=== PATIENT | female | born 1980 | race African-American/Black ===

== ENCOUNTER → 2017-04-07 | Outpatient (CLI) | payer MEDICARE, OTHER ==
--- NOTE | 2017-04-07 16:51 | US ---
EXAMINATION TYPE: US pelvis complete transvag DATE OF EXAM: 04/07/2017 COMPARISON: 09/14/2015 CLINICAL HISTORY: N83.209 Ovarian cyst. F/U previous ovarian masses TECHNIQUE: Transvaginal (TV) and Transabdominal (TA) Date of LMP: 03/23/2017 EXAM MEASUREMENTS: Uterus: 9.9 x 4.3 x 4.7 cm Endometrial Stripe: 0.7 cm Right Ovary: 8.1 x 6.5 x 6.3 cm Left Ovary: 3.5 x 2.7 x 1.6 cm Large pt body habitus 1. Uterus: Anteverted Heterogeneous 2. Endometrium: wnl 3. Right Ovary: Heterogeneous, echogenic lesion within right adnexa= 7.1 x 6.6 x 8.1 cm, Normal ovar james tissue not identified, slightly larger when compared to previous 4. Left Ovary: Small echogenic lesion as seen on previous= 1.7 x 1.0 x 1.1 cm, slightly larger from previous exam 5. Bilateral Adnexa: wnl 6. Posterior cul-de-sac: wnl IMPRESSION: Persistently enlarged right ovary that is slightly larger than old exam of 09/14/2015. No rmal endometrium. No free fluid. Ovary has increased from 7.2 cm to 8.1 cm in length.
== END | disposition home or self-care (01) ==
LOC: RADUSWWP 16:16
PROVIDERS: ATTEND Family Medicine
DX: N83.8 Other noninflammatory disorders of ovary, fallopian tube and broad ligament (principal)
CPT/HCPCS: 76830; 76856

== ENCOUNTER 2017-09-04 08:35 | Observation (INO) | payer MEDICARE, OTHER ==
[2017-09-04] MEDS ORDERED: ASPIRIN 81 MG PO STA (09:04)
[2017-09-04] MEDS ORDERED: NITROGLYCERIN OINT 1 INCH/GM PACKET TOPICAL STA (09:04)
--- NOTE | 2017-09-04 09:13 | ED ---
General Adult HPI - General Chief complaint: Chest Pain Stated complaint: Diff Breathing Time Seen by Provider: 09/04/17 08:40 Source: patient, RN notes reviewed Mode of arrival: ambulatory Limitations: no limitations - History of Present Illness Initial comments: This is a 37-year-old female presents emergency department stating that she had chest pain across her chest at 6:00 this morning lasted for approximately 2 hours. Patient states she also found it difficult to take a deep breath per patient states that she arrived to the ER she has no symptoms whatsoever. Patient states she just would like to be checked out. Patient denies any palpitations. Patient denies any recent fever chills or cough. Patient denies any headache patient denies numbness weakness. Patient denies any lightheadedness dizziness or near syncopal episode. Patient denies abdominal pain patient denies nausea vomiting or diarrhea. At this time patient has no complaints - Related Data Home Medications Medication Instructions Recorded Confirmed No Known Home Medications [No 09/04/17 09/04/17 Known Home Medications] Allergies Allergy/AdvReac Type Severity Reaction Status Date / Time No Known Allergies Allergy Verified 09/04/17 08:48 Review of Systems ROS Statement: Those systems with pertinent positive or pertinent negative responses have been documented in the HPI. ROS Other: All systems not noted in ROS Statement are negative. Past Medical History Past Medical History: No Reported History History of Any Multi-Drug Resistant Organisms: None Reported Past Surgical History: No Surgical Hx Reported Past Psychological History: Anxiety, Depression Smoking Status: Former smoker Past Alcohol Use History: None Reported Past Drug Use History: None Reported - Past Family History Mother Family Medical History: Hypertension General Exam - General Exam Comments Initial Comments: GENERAL: Patient is well-developed and well-nourished. Patient is nontoxic and well- hydrated and is in no acute distress. ENT: Neck is soft and supple. No significant lymphadenopathy is noted. Oropharynx is clear. Moist mucous membranes. Neck has full range of motion without eliciting any pain. EYES: The sclera were anicteric and conjunctiva were pink and moist. Extraocular movements were intact and pupils were equal round and reactive to light. Eyelids were unremarkable. PULMONARY: Unlabored respirations. Good breath sounds bilaterally. No audible rales rhonchi or wheezing was noted. CARDIOVASCULAR: There is a regular rate and rhythm without any murmurs gallops or rubs. ABDOMEN: Soft and nontender with normal bowel sounds. No palpable organomegaly was noted. There is no palpable pulsatile mass. SKIN: Skin is clear with no lesions or rashes and otherwise unremarkable. NEUROLOGIC: Patient is alert and oriented x3. Cranial nerves II through XII are grossly intact. Motor and sensory are also intact. Normal speech, volume and content. Symmetrical smile. MUSCULOSKELETAL: Normal extremities with adequate strength and full range of motion. LYMPHATICS: No significant lymphadenopathy is noted PSYCHIATRIC: Normal psychiatric evaluation. Normal interpersonal interactions appears functionally intact in deals appropriately with others. No signs of depression. No signs of anxiety. No delusions. No hallucinations. Limitations: no limitations Course Vital Signs 09/04/17 09/04/17 08:37 10:01 Temperature 97.3 F L Pulse Rate 89 84 Respiratory 18 18 Rate Blood Pressure 139/67 107/53 O2 Sat by Pulse 99 100 Oximetry Medical Decision Making - Medical Decision Making Patient's EKG shows normal sinus rhythm at 93 bpm NE interval is 204 QRS is 74 QT interval 362 QTC is 450 per patient's EKG shows no ST segment elevation or depression or T wave abnormalities are noted. Chest x-ray shows no acute abnormality. Patient did not feel comfortable going home and The patient for observation - Lab Data Result diagrams: 09/04/17 08:57 09/04/17 08:57 Lab Results 09/04/17 09/04/17 09/04/17 Range/Units 08:57 08:57 08:57 WBC 4.2 (3.8-10.6) k/uL RBC 4.59 (3.80-5.40) m/uL Hgb 12.2 (11.4-16.0) gm/dL Hct 39.4 (34.0-46.0) % MCV 85.9 (80.0-100.0) fL MCH 26.6 (25.0-35.0) pg MCHC 30.9 L (31.0-37.0) g/dL RDW 13.1 (11.5-15.5) % Plt Count 307 (150-450) k/uL Neutrophils % 38 % Lymphocytes % 49 % Monocytes % 7 % Eosinophils % 2 % Basophils % 1 % Neutrophils # 1.6 (1.3-7.7) k/uL Lymphocytes # 2.0 (1.0-4.8) k/uL Monocytes # 0.3 (0-1.0) k/uL Eosinophils # 0.1 (0-0.7) k/uL Basophils # 0.0 (0-0.2) k/uL Hypochromasia Moderate PT (9.0-12.0) sec INR (<1.2) APTT (22.0-30.0) sec Sodium 141 (137-145) mmol/L Potassium 4.2 (3.5-5.1) mmol/L Chloride 107 (98-107) mmol/L Carbon Dioxide 25 (22-30) mmol/L Anion Gap 9 mmol/L BUN 18 H (7-17) mg/dL Creatinine 0.96 (0.52-1.04) mg/dL Est GFR (MDRD) Af Amer >60 (>60 ml/min/1.73 sqM) Est GFR (MDRD) Non-Af >60 (>60 ml/min/1.73 sqM) Glucose 96 (74-99) mg/dL Calcium 9.3 (8.4-10.2) mg/dL Magnesium 1.8 (1.6-2.3) mg/dL Total Bilirubin 0.3 (0.2-1.3) mg/dL AST 21 (14-36) U/L ALT 37 (9-52) U/L Alkaline Phosphatase 75 (38-126) U/L Total Creatine Kinase 89 (30-135) U/L CK-MB (CK-2) <0.2 (0.0-2.4) ng/mL CK-MB (CK-2) Rel Index Troponin I <0.012 (0.000-0.034) ng/mL Total Protein 7.4 (6.3-8.2) g/dL Albumin 3.7 (3.5-5.0) g/dL 09/04/17 Range/Units 08:57 WBC (3.8-10.6) k/uL RBC (3.80-5.40) m/uL Hgb (11.4-16.0) gm/dL Hct (34.0-46.0) % MCV (80.0-100.0) fL MCH (25.0-35.0) pg MCHC (31.0-37.0) g/dL RDW (11.5-15.5) % Plt Count (150-450) k/uL Neutrophils % % Lymphocytes % % Monocytes % % Eosinophils % % Basophils % % Neutrophils # (1.3-7.7) k/uL Lymphocytes # (1.0-4.8) k/uL Monocytes # (0-1.0) k/uL Eosinophils # (0-0.7) k/uL Basophils # (0-0.2) k/uL Hypochromasia PT 10.2 (9.0-12.0) sec INR 1.0 (<1.2) APTT 24.3 (22.0-30.0) sec Sodium (137-145) mmol/L Potassium (3.5-5.1) mmol/L Chloride (98-107) mmol/L Carbon Dioxide (22-30) mmol/L Anion Gap mmol/L BUN (7-17) mg/dL Creatinine (0.52-1.04) mg/dL Est GFR (MDRD) Af Amer (>60 ml/min/1.73 sqM) Est GFR (MDRD) Non-Af (>60 ml/min/1.73 sqM) Glucose (74-99) mg/dL Calcium (8.4-10.2) mg/dL Magnesium (1.6-2.3) mg/dL Total Bilirubin (0.2-1.3) mg/dL AST (14-36) U/L ALT (9-52) U/L Alkaline Phosphatase (38-126) U/L Total Creatine Kinase (30-135) U/L CK-MB (CK-2) (0.0-2.4) ng/mL CK-MB (CK-2) Rel Index Troponin I (0.000-0.034) ng/mL Total Protein (6.3-8.2) g/dL Albumin (3.5-5.0) g/dL Disposition Clinical Impression: Chest pain Disposition: ADMITTED IP TO THIS HOSP Referrals: Cristian Vines MD [Primary Care Provider] - 1-2 days Time of Disposition: 10:39
[2017-09-04 09:27] LABS: Partial Thromboplastin Time 24.3 sec (22.0-30.0); Prothrombin Time 10.2 sec (9.0-12.0)
--- NOTE | 2017-09-04 09:27 | XR ---
EXAMINATION TYPE: XR chest 2V DATE OF EXAM ORDERED: 09/04/2017 HISTORY: Chest Pain. REFERENCE: None. FINDINGS: The lungs are clear. Pleural spaces are clear. Heart size is normal. IMPRESSION: NORMAL CHEST.
[2017-09-04 09:31] LABS: Basophils % (A) 1 %; CH 26.5; CHCM 30.9; Eosinophils # (A) 0.1 k/uL (0-0.7); Eosinophils % (A) 2 %; HCT 39.4 % (34.0-46.0); HDW 2.95; HGB 12.2 gm/dL (11.4-16.0); Hypochromasia Moderate; Luc # (Auto) 0.16; Luc % (Auto) 4; Lymphocytes % (A) 49 %; MCH 26.6 pg (25.0-35.0); MCHC 30.9 g/dL (31.0-37.0); MCV 85.9 fL (80.0-100.0); Mean Platelet Volume 7.1; Monocytes # (A) 0.3 k/uL (0-1.0); Monocytes % (A) 7 %; Neutrophils # (A) 1.6 k/uL (1.3-7.7); Neutrophils % (A) 38 %; RBC 4.59 m/uL (3.80-5.40); RDW 13.1 % (11.5-15.5); WBC 4.2 k/uL (3.8-10.6); WBC (Perox) 4.32
[2017-09-04 09:32] LABS: ALT 37 U/L (9-52); AST 21 U/L (14-36); Alkaline Phosphatase 75 U/L (38-126); Anion Gap 9 mmol/L; Blood Urea Nitrogen 18 mg/dL (7-17); Calcium 9.3 mg/dL (8.4-10.2); Carbon Dioxide 25 mmol/L (22-30); Chloride 107 mmol/L (98-107); Glucose 96 mg/dL (74-99); Magnesium 1.8 mg/dL (1.6-2.3); Non-African American GFR(MDRD) >60 (>60 ml/min/1.73 sqM); Potassium 4.2 mmol/L (3.5-5.1); Sodium 141 mmol/L (137-145); Total Bilirubin 0.3 mg/dL (0.2-1.3); Total Protein 7.4 g/dL (6.3-8.2)
[2017-09-04 09:39] LABS: Creatine Kinase 89 U/L (30-135)
[2017-09-04 09:51] LABS: Creatine Kinase MB <0.2 ng/mL (0.0-2.4); Troponin I <0.012 ng/mL (0.000-0.034)
[2017-09-04] MEDS ORDERED: NITROGLYCERIN SL TABS 0.4 MG TAB SUBLINGUAL PRN (10:39)
[2017-09-04 11:52] VITALS: BMI 44.3
[2017-09-04] MEDS: NITROGLYCERIN OINT 1 INCH/GM PACKET TOPICAL SCH ×2 (12:57→17:26)
--- NOTE | 2017-09-04 13:43 | P.CRDCN ---
History of Present Illness Consult date: 09/04/17 History of present illness: This is a 37-year-old -[place] female with past medical history significant for anxiety and depression. She denies any history of CAD or FL in the past and has never seen a audit associate for any reason. We have asked to see her in consultation for complaints of chest pain. She states this morning while she was laying in bed she got a tight feeling across her chest into his upper chest midsternal region and in persisted for approximately 2 hours. She tried repositioning herself in bed and nothing made the pain better. The pain ultimately went away on its own with no specific alleviating factors that she can recollect. She said she was mildly short of breath associated with this pain and it was hard to get into a full deep breath. She denies associated nausea, dizziness or palpitations. She denies radiation of the pain to her arms , neck, jaw or back. She states she has never experienced this feeling like this in the past. At the time of examination she is chest pain-free. EKG reveals sinus mechanism with no acute ST or T-wave abnormalities. Chest x-ray negative for any acute cardiopulmonary process. Cardiac enzymes negative 1, potassium 4.2, magnesium 1.8, UUN 18, creatinine 0.96, hemoglobin 12.2, platelets 307. Blood pressure 102/68 with a heart rate of 85, upon arrival blood pressure was 139/67. She takes no home medications. Review of Systems CONSTITUTIONAL: Denies fever. Denies chills. EYES: Denies blurred vision. Denies vision changes. Denies eye pain. EARS, NOSE, MOUTH & THROAT: Denies headache. Denies sore throat. Denies ear pain. CARDIOVASCULAR: Complains of one episode of chest pain, resolved. Denies shortness of breath. Denies orthopnea. Denies PND. Denies palpitations. RESPIRATORY: Denies cough. GASTROINTESTINAL: Denies abdominal pain. Denies diarrhea. Denies constipation. Denies nausea. Denies vomitng. MUSCULOSKELETAL: Denies myalgias. INTEGUMENTARY: Denies pruitis. Denies rash. NEUROLOGIC: Denies numbness. Denies tingling. Denies weakness. PSYCHIATRIC: Denies anxiety. Denies depression. ENDOCRINE: Denies fatigue. Denies weight change. Denies polydipsia. Denies polyurina. GENITOURINARY: Denies burning, hematuria or urgency with micturation. HEMATOLOGIC: Denies history of anemia. Denies bleeding. Past Medical History Past Medical History: No Reported History History of Any Multi-Drug Resistant Organisms: None Reported Past Surgical History: No Surgical Hx Reported Past Anesthesia/Blood Transfusion Reactions: No Reported Reaction Past Psychological History: Anxiety, Depression Smoking Status: Former smoker Past Alcohol Use History: None Reported Past Drug Use History: None Reported - Past Family History Sister(s) Family Medical History: Hypertension Mother Family Medical History: Hypertension Medications and Allergies Home Medications Medication Instructions Recorded Confirmed Type No Known Home Medications [No 09/04/17 09/04/17 History Known Home Medications] Allergies Allergy/AdvReac Type Severity Reaction Status Date / Time No Known Allergies Allergy Verified 09/04/17 08:48 Physical Exam Vitals: Vital Signs Temp Pulse Pulse Resp BP BP Pulse Ox 09/04/17 11:30 97.5 F L 85 18 102/68 100 09/04/17 11:00 85 18 108/58 99 09/04/17 10:01 84 18 107/53 100 09/04/17 08:37 97.3 F L 89 18 139/67 99 Intake and Output 09/03/17 09/04/17 09/04/17 22:59 06:59 14:59 Other: Weight 145.1 kg Patient Weight 09/05/17 06:59 Weight 145.1 kg GENERAL: This is a 37-year-old and [place] in no apparent distress at the time of my examination. Morbidly obese. HEENT: Head is atraumatic, normocephalic. Pupils are equal, round. Sclerae anicteric. Conjunctivae are clear. Mucous membranes of the mouth are moist. Neck is supple. There is no jugular venous distention. No carotid bruit is heard. LUNGS: Clear to auscultation no wheezes, rales or rhonchi. No chest wall tenderness is noted on palpation or with deep breathing. HEART: Regular rate and rhythm without murmurs, rubs or gallops. S1 and S2 heard. ABDOMEN: Soft, nontender. Bowel sounds are heard. No organomegaly noted. EXTREMITIES: 2+ peripheral pulses with no evidence of peripheral edema and no calf tenderness noted. NEUROLOGIC: Patient is awake, alert and oriented x3. Results 09/04/17 08:57 09/04/17 08:57 Cardiac Enzymes 09/04/17 09/04/17 Range/Units 08:57 08:57 AST 21 (14-36) U/L CK-MB (CK-2) <0.2 (0.0-2.4) ng/mL Troponin I <0.012 (0.000-0.034) ng/mL Coagulation 09/04/17 Range/Units 08:57 PT 10.2 (9.0-12.0) sec APTT 24.3 (22.0-30.0) sec CBC 09/04/17 Range/Units 08:57 WBC 4.2 (3.8-10.6) k/uL RBC 4.59 (3.80-5.40) m/uL Hgb 12.2 (11.4-16.0) gm/dL Hct 39.4 (34.0-46.0) % Plt Count 307 (150-450) k/uL Comprehensive Metabolic Panel 09/04/17 Range/Units 08:57 Sodium 141 (137-145) mmol/L Potassium 4.2 (3.5-5.1) mmol/L Chloride 107 (98-107) mmol/L Carbon Dioxide 25 (22-30) mmol/L BUN 18 H (7-17) mg/dL Creatinine 0.96 (0.52-1.04) mg/dL Glucose 96 (74-99) mg/dL Calcium 9.3 (8.4-10.2) mg/dL AST 21 (14-36) U/L ALT 37 (9-52) U/L Alkaline Phosphatase 75 (38-126) U/L Total Protein 7.4 (6.3-8.2) g/dL Albumin 3.7 (3.5-5.0) g/dL Current Medications Generic Name Dose Route Start Last Admin Trade Name Freq PRN Reason Stop Dose Admin Aspirin 325 mg 09/05/17 09:00 Aspirin PO DAILY BETO Nitroglycerin 1 inch 09/04/17 13:00 Nitro-Bid Oint TOPICAL Q6HR BETO Nitroglycerin 0.4 mg 09/04/17 10:39 Nitrostat SUBLINGUAL Q5M PRN Chest Pain Intake and Output 09/03/17 09/04/17 09/04/17 22:59 06:59 14:59 Other: Weight 145.1 kg Patient Weight 09/05/17 06:59 Weight 145.1 kg 09/04/17 08:57 09/04/17 08:57 Assessment and Plan Assessment: ASSESSMENT 1. Chest pain, atypical. Cardiac risk factor includes obesity. 2. Morbid obesity PLAN EKG reveals no acute changes of concern. Cardiac enzymes are normal 1. We recommend obtaining 2 more sets of cardiac enzymes to rule out an acute coronary event. If these are normal recommend that the patient follow-up as an outpatient for stress testing. We will obtain a 2-D echocardiogram and Doppler study to assess cardiac structure and function. Last on modifications have been discussed with the patient. Thank you kindly for this consultation. Nurse Practitioner note has been reviewed, I agree with a documented findings and plan of care. Patient was seen and examined.
[2017-09-04] MEDS ORDERED: ACETAMINOPHEN TAB 325 MG TAB PO PRN (14:13)
--- NOTE | 2017-09-04 14:27 | HP ---
HISTORY AND PHYSICAL CHIEF COMPLAINT: Chest pain. HISTORY OF PRESENT ILLNESS: This is another admission for this 37-year-old that did present to the emergency room with shortness of breath and chest pain and was felt to not likely have heart disease, but should be admitted for observation. She has had no fever, no chills, hemoptysis, orthopnea, PND, etc. Past medical history, family history, personal and social histories reveal that she is not allergic to any medication. She uses Tylenol extra-strength occasionally. She does have a past history of depression. She has had no surgery. She does not smoke. . PHYSICAL EXAM: Blood pressure is 114/76, pulse 74, respirations 16. She is afebrile. In general she appeared to be overweight, in no acute distress. Skin color is normal. Skin is warm, dry. Lymph nodes are not enlarged. Head, ears, eyes, nose, mouth, and throat were normal and neck veins not distended but thyroid is not enlarged. Chest is clear. Cardiac exam is normal sinus rhythm. No murmurs or extra sounds. The abdomen is soft, nontender. EXTREMITIES: Normal. Neurologically she is intact. She is admitted to the hospital with diagnoses. 1. Chest pain. 2. Obesity. PLAN: 1. Bed rest. 2. IV fluids. 3. Serial EKGs and enzymes. MMODL / IJN: [id number] /
[2017-09-04 15:55] LABS: Creatine Kinase 77 U/L (30-135)
[2017-09-04 16:07] LABS: Creatine Kinase MB <0.2 ng/mL (0.0-2.4); Troponin I <0.012 ng/mL (0.000-0.034)
[2017-09-04 20:35] LABS: Creatine Kinase 73 U/L (30-135)
[2017-09-04 20:48] LABS: Creatine Kinase MB <0.2 ng/mL (0.0-2.4); Troponin I <0.012 ng/mL (0.000-0.034)
[2017-09-05 01:23] LABS: Cholesterol 184 mg/dL (<200); HDL Cholesterol 46 mg/dL (40-60)
[2017-09-05] MEDS: NITROGLYCERIN OINT 1 INCH/GM PACKET TOPICAL SCH ×3 (04:52→13:25)
[2017-09-05 08:23] VITALS: RESP 16
[2017-09-05] MEDS ORDERED: ASPIRIN 325 MG TAB PO SCH (09:00)
[2017-09-05 12:05] VITALS: BP 108/56; PULSE 72; TEMP 97.5
--- NOTE | 2017-09-05 14:31 | ECHOF ---
Referral Reason:cp MEASUREMENTS -------- HEIGHT: 175.3 cm WEIGHT: 144.7 kg BP: 102/68 RVIDd: 2.2 cm (< 3.3) IVSd: 1.1 cm (0.6 - 1.1) LVIDd: 3.9 cm (3.9 - 5.3) LVPWd: 1.1 cm (0.6 - 1.1) IVSs: 1.5 cm LVIDs: 2.2 cm LVPWs: 1.5 cm Ao Diam: 3.1 cm (2.0 - 3.7) AV Cusp: 2.2 cm (1.5 - 2.6) LA Diam: 3.0 cm (2.7 - 3.8) MV E Jean Pierre: 0.73 m/s MV DecT: 385 ms MV A Jean Pierre: 0.80 m/s MV E/A Ratio: 0.91 RAP: 5.00 mmHg RVSP: 9.49 mmHg FINDINGS -------- Sinus rhythm. This was a technically difficult study with suboptimal views. The left ventricular size is normal. There is borderline concentric left ventricular hypertrophy. Overall left ventricular systolic function is normal with, an EF between 60 - 65 %. The right ventricle is normal in size and function. Normal LA size by volume 22+/-6 ml/m2. The right atrium is normal in size. 1.5mg of Definity was utilized for enhancement of images The aortic valve is trileaflet, and appears structurally normal. No aortic stenosis or regurgitation. The mitral valve is normal. There is trace mitral regurgitation. Trace tricuspid regurgitation present. Right ventricular systolic pressure is normal at < 35 mmHg. There is no evidence of pulmonary hypertension. The pulmonic valve was not well visualized. The aortic root size is normal. Normal inferior vena cava with normal inspiratory collapse consistent with estimated right atrial pre ssure of 5 mmHg. The pericardium is normal. There is no pericardial effusion. CONCLUSIONS -------- 1. Sinus rhythm. 2. This was a technically difficult study with suboptimal views. 3. The left ventricular size is normal. 4. There is borderline concentric left ventricular hypertrophy. 5. Overall left ventricular systolic function is normal with, an EF between 60 - 65 %. 6. Normal LA size by volume 22+/-6 ml/m2. 7. 1.5mg of Definity was utilized for enhancement of images 8. The aortic valve is trileaflet, and appears structurally normal. No aortic stenosis or regurgitati on. 9. There is trace mitral regurgitation. 10. Trace tricuspid regurgitation present. 11. Right ventricular systolic pressure is normal at < 35 mmHg. 12. There is no evidence of pulmonary hypertension. 13. The pulmonic valve was not well visualized. 14. The aortic root size is normal. 15. There is no pericardial effusion. PICTURE FRAMER: Aki Morgan RDCS
--- NOTE | 2017-09-05 16:31 | DS ---
DISCHARGE SUMMARY CHIEF COMPLAINT: Chest pain. HISTORY OF PRESENT ILLNESS AND PHYSICAL EXAMINATION: Details of this lady's history and physical can be found in the initial workup. LABORATORY STUDIES: While she was in a hospital she had laboratory studies, details of which can be found in the laboratory section of her chart. COURSE IN HOSPITAL: After admission she was placed on bedrest and started on intravenous fluids and she had serial EKGs and enzymes that were normal. It was felt she could go home. She will follow up in the office in a few days. FINAL DIAGNOSIS: Atypical chest pain. OPERATIONS: None. CONSULTATIONS: None. She is improved. MMODL / IJN: [id number] /
== END 2017-09-05 14:49 | disposition home or self-care (01) ==
LOC: EC 08:35 → 3OBS 10:40
PROVIDERS: ADMIT Family Medicine; ATTEND Family Medicine
DX: R07.89 Other chest pain (principal); E66.01 Morbid (severe) obesity due to excess calories; Z68.42 Body mass index [BMI] 45.0-49.9, adult; F41.9 Anxiety disorder, unspecified; F32.9 Major depressive disorder, single episode, unspecified; Z87.891 Personal history of nicotine dependence; Z82.49 Family history of ischemic heart disease and other diseases of the circulatory system; R06.02 Shortness of breath
CPT/HCPCS: 99285; 36415; 94760; 93005; 80061; 80053; 82550; 82553; 83735; 84484; 85025; 85610; 85730; 71020; G0378 ×2; C8929; Q9957; 93306

== ENCOUNTER 2017-11-09 15:56 | Emergency (ER) | payer MEDICARE, OTHER ==
[2017-11-09 16:10] VITALS: TEMP 98.4
[2017-11-09] MEDS ORDERED: KETOROLAC 30 MG/ML 1 ML VIAL IVP STA (18:19)
[2017-11-09] MEDS ORDERED: ONDANSETRON 4 MG/2 ML VIAL IVP STA (18:19)
[2017-11-09] MEDS ORDERED: SODIUM CHLORIDE 0.9% 1,000 ML IV ONE (18:19)
--- NOTE | 2017-11-09 18:19 | ED ---
Nausea/Vomiting/Diarrhea HPI - General Chief complaint: Nausea/Vomiting/Diarrhea Stated complaint: Weakness/Vomiting Time Seen by Provider: 11/09/17 17:02 Source: patient, RN notes reviewed, old records reviewed Mode of arrival: ambulatory Limitations: no limitations - History of Present Illness Initial comments: This patient is a 37-year-old female. Presents emergency department today with chief complaint of diarrhea, vomiting, cough, runny nose and vague symptoms. She reports his been going on for 2 weeks. She reports feeling very weak and fatigued.patient also states she's had abnormal vaginal bleeding over the past few days. She is not her last menstrual cycle. She does not know if she could possibly be . - Related Data Previous Rx's Medication Instructions Recorded Nzs-Ersj-Lixrt Acid 1 cap PO DAILY #30 cap 11/09/17 [-U Capsule (formulary)] Allergies Allergy/AdvReac Type Severity Reaction Status Date / Time No Known Allergies Allergy Verified 11/09/17 17:02 Review of Systems ROS Statement: Those systems with pertinent positive or pertinent negative responses have been documented in the HPI. ROS Other: All systems not noted in ROS Statement are negative. Past Medical History Past Medical History: No Reported History History of Any Multi-Drug Resistant Organisms: None Reported Past Surgical History: No Surgical Hx Reported Past Anesthesia/Blood Transfusion Reactions: No Reported Reaction Past Psychological History: Anxiety, Depression Smoking Status: Former smoker Past Alcohol Use History: None Reported Past Drug Use History: None Reported - Past Family History Sister(s) Family Medical History: Hypertension Mother Family Medical History: Hypertension General Exam - General Exam Comments Initial Comments: this is a 37-year-old female. Patient is morbidly obese. Patient is on appear to be in any acute distress. Limitations: no limitations General appearance: alert, in no apparent distress Head exam: Present: atraumatic, normocephalic, normal inspection Eye exam: Present: normal appearance, PERRL, EOMI. Absent: scleral icterus, conjunctival injection, periorbital swelling ENT exam: Present: normal exam, mucous membranes moist Neck exam: Present: normal inspection. Absent: tenderness, meningismus, lymphadenopathy Respiratory exam: Present: normal lung sounds bilaterally. Absent: respiratory distress, wheezes, rales, rhonchi, stridor Cardiovascular Exam: Present: regular rate, normal rhythm, normal heart sounds. Absent: systolic murmur, diastolic murmur, rubs, gallop, clicks GI/Abdominal exam: Present: soft, normal bowel sounds. Absent: distended, tenderness, guarding, rebound, rigid External exam: Present: normal external exam Speculum exam: Present: normal speculum exam. Absent: erythema, vaginal discharge, cervical discharge, vaginal bleeding By manual exam: Present: normal by manual exam Extremities exam: Present: normal inspection, full ROM, normal capillary refill. Absent: tenderness, pedal edema, joint swelling, calf tenderness Back exam: Present: normal inspection Neurological exam: Present: alert, oriented X3, CN II-XII intact Course Vital Signs 11/09/17 11/09/17 16:08 21:20 Temperature 98.4 F Pulse Rate 77 78 Respiratory 20 16 Rate Blood Pressure 136/63 141/63 O2 Sat by Pulse 100 98 Oximetry Medical Decision Making - Medical Decision Making This patient is a [id number]-[id number] with 2 weeks of fatigue, vomiting episodes , diarrhea and his nausea feeling. She reports she feels fatigued. Patient was given IV fluids labwork obtained. Patient was lab work was reviewed and normal. Patient eventually left urine sample. It was evident the patient had a positive urine test. She did not know that she was . She complained of some intermittent vaginal bleeding, serum hCG was obtained, and ABO Rh is obtained. Patient's blood type is B+. Patient see any bleeding at this time during the vaginal exam. She did have an ultrasound. It confirmed a 6 week 2 day . Patient understands that she needs to follow-up with [facility]. Discharged with vitamins. Discussed return parameters. Discussed that I think that her symptoms are related to early .due to the complaint of abnormal vaginal bleeding, I will have the patient and repeat hCG. - Lab Data Result diagrams: 11/09/17 18:44 11/09/17 18:44 Lab Results 11/09/17 11/09/17 11/09/17 Range/Units 18:44 18:44 18:44 WBC 6.0 (3.8-10.6) k/uL RBC 4.33 (3.80-5.40) m/uL Hgb 11.1 L (11.4-16.0) gm/dL Hct 36.1 (34.0-46.0) % MCV 83.4 (80.0-100.0) fL MCH 25.8 (25.0-35.0) pg MCHC 30.9 L (31.0-37.0) g/dL RDW 14.7 (11.5-15.5) % Plt Count 292 (150-450) k/uL Neutrophils % 58 % Lymphocytes % 30 % Monocytes % 7 % Eosinophils % 1 % Basophils % 0 % Neutrophils # 3.5 (1.3-7.7) k/uL Lymphocytes # 1.8 (1.0-4.8) k/uL Monocytes # 0.4 (0-1.0) k/uL Eosinophils # 0.1 (0-0.7) k/uL Basophils # 0.0 (0-0.2) k/uL Hypochromasia Moderate Sodium 140 (137-145) mmol/L Potassium 3.9 (3.5-5.1) mmol/L Chloride 107 (98-107) mmol/L Carbon Dioxide 23 (22-30) mmol/L Anion Gap 10 mmol/L BUN 12 (7-17) mg/dL Creatinine 0.80 (0.52-1.04) mg/dL Est GFR (MDRD) Af Amer >60 (>60 ml/min/1.73 sqM) Est GFR (MDRD) Non-Af >60 (>60 ml/min/1.73 sqM) Glucose 85 (74-99) mg/dL Calcium 9.5 (8.4-10.2) mg/dL Total Bilirubin 0.4 (0.2-1.3) mg/dL AST 16 (14-36) U/L ALT 28 (9-52) U/L Alkaline Phosphatase 68 (38-126) U/L Total Protein 7.3 (6.3-8.2) g/dL Albumin 3.7 (3.5-5.0) g/dL HCG, Quant mIU/mL Urine Color Urine Appearance (Clear) Urine pH (5.0-8.0) Ur Specific [place] (1.001-1.035) Urine Protein (Negative) Urine Glucose (UA) (Negative) Urine Ketones (Negative) Urine Blood (Negative) Urine Nitrite (Negative) Urine Bilirubin (Negative) Urine Urobilinogen (<2.0) mg/dL Ur Leukocyte Esterase (Negative) Urine HCG, Qual Detected (Not Detectd) Blood Type Blood Type Recheck 11/09/17 11/09/17 11/09/17 Range/Units 18:44 18:44 20:28 WBC (3.8-10.6) k/uL RBC (3.80-5.40) m/uL Hgb (11.4-16.0) gm/dL Hct (34.0-46.0) % MCV (80.0-100.0) fL MCH (25.0-35.0) pg MCHC (31.0-37.0) g/dL RDW (11.5-15.5) % Plt Count (150-450) k/uL Neutrophils % % Lymphocytes % % Monocytes % % Eosinophils % % Basophils % % Neutrophils # (1.3-7.7) k/uL Lymphocytes # (1.0-4.8) k/uL Monocytes # (0-1.0) k/uL Eosinophils # (0-0.7) k/uL Basophils # (0-0.2) k/uL Hypochromasia Sodium (137-145) mmol/L Potassium (3.5-5.1) mmol/L Chloride (98-107) mmol/L Carbon Dioxide (22-30) mmol/L Anion Gap mmol/L BUN (7-17) mg/dL Creatinine (0.52-1.04) mg/dL Est GFR (MDRD) Af Amer (>60 ml/min/1.73 sqM) Est GFR (MDRD) Non-Af (>60 ml/min/1.73 sqM) Glucose (74-99) mg/dL Calcium (8.4-10.2) mg/dL Total Bilirubin (0.2-1.3) mg/dL AST (14-36) U/L ALT (9-52) U/L Alkaline Phosphatase (38-126) U/L Total Protein (6.3-8.2) g/dL Albumin (3.5-5.0) g/dL HCG, Quant 01495.7 mIU/mL Urine Color Yellow Urine Appearance Clear (Clear) Urine pH 6.5 (5.0-8.0) Ur Specific [place] 1.023 (1.001-1.035) Urine Protein Trace H (Negative) Urine Glucose (UA) Negative (Negative) Urine Ketones Negative (Negative) Urine Blood Negative (Negative) Urine Nitrite Negative (Negative) Urine Bilirubin Negative (Negative) Urine Urobilinogen <2.0 (<2.0) mg/dL Ur Leukocyte Esterase Negative (Negative) Urine HCG, Qual (Not Detectd) Blood Type B Positive Blood Type Recheck No - Radiology Data Radiology results: report reviewed Ultrasound shows single live intrauterine with sonographic age of 6 weeks and 2 days heart rate of 137. Previously seen subchorionic hemorrhage is no longer visualized. Continue to demonstrate hyperechoic right ovarian mass measuring 7 cm. Pelvic MRI is considered recommended this could represent dermoid or ovarian neoplasm. Disposition Clinical Impression: Threatened miscarriage, 6 weeks gestation of Disposition: HOME SELF-CARE Condition: Good Instructions: Nausea and Vomiting in (ED) Additional Instructions: Patient has a follow-up with primary care provider. Return to emergency department if any alarming signs or symptoms occur. Prescriptions: Sig-Mfow-Uxdsp Acid [-U Capsule (formulary)] 1 cap PO DAILY # 30 cap Referrals: Cristian Vines MD [Primary Care Provider] - 1-2 days Giancarlo Kelly DO [Doctor of Osteopathic Medicine] - 1-2 days Time of Disposition: 20:40
[2017-11-09 18:54] LABS: Basophils % (A) 0 %; Eosinophils # (A) 0.1 k/uL (0-0.7); Eosinophils % (A) 1 %; HCT 36.1 % (34.0-46.0); HGB 11.1 gm/dL (11.4-16.0); Hypochromasia Moderate; Lymphocytes # (A) 1.8 k/uL (1.0-4.8); Lymphocytes % (A) 30 %; MCH 25.8 pg (25.0-35.0); MCHC 30.9 g/dL (31.0-37.0); MCV 83.4 fL (80.0-100.0); Mean Platelet Volume 7.7; Monocytes # (A) 0.4 k/uL (0-1.0); Monocytes % (A) 7 %; Neutrophils # (A) 3.5 k/uL (1.3-7.7); Neutrophils % (A) 58 %; Platelet Count 292 k/uL (150-450); RBC 4.33 m/uL (3.80-5.40); RDW 14.7 % (11.5-15.5)
[2017-11-09 18:55] LABS: Appearance,Urine Clear (Clear); Bilirubin,Urine Negative (Negative); Blood,Urine Negative (Negative); Color,Urine Yellow; Glucose,Urine (UA) Negative (Negative); Ketones,Urine Negative (Negative); Leukocyte Esterase,Urine Negative (Negative); Nitrite,Urine Negative (Negative); PH, Urine 6.5 (5.0-8.0); Protein,Urine Trace (Negative); Specific Gravity,Urine 1.023 (1.001-1.035); Urobilinogen,Urine <2.0 mg/dL (<2.0)
[2017-11-09 19:19] LABS: ALT 28 U/L (9-52); AST 16 U/L (14-36); Albumin 3.7 g/dL (3.5-5.0); Alkaline Phosphatase 68 U/L (38-126); Anion Gap 10 mmol/L; Blood Urea Nitrogen 12 mg/dL (7-17); Calcium 9.5 mg/dL (8.4-10.2); Carbon Dioxide 23 mmol/L (22-30); Chloride 107 mmol/L (98-107); Glucose 85 mg/dL (74-99); Potassium 3.9 mmol/L (3.5-5.1); Sodium 140 mmol/L (137-145); Total Bilirubin 0.4 mg/dL (0.2-1.3); Total Protein 7.3 g/dL (6.3-8.2)
--- NOTE | 2017-11-09 20:11 | US ---
EXAMINATION TYPE: US OB <=14 wks transvag DATE OF EXAM: 11/09/2017 COMPARISON: NONE CLINICAL HISTORY: Pain. Weakness and vomiting EXAM PERFORMED: Transvaginal (TV) and Transabdominal (TA) EXAM MEASUREMENTS: GESTATIONAL AGE / DATING Physician Established: Not yet established Dates by LMP: (2 weeks/5 days) EDC: 07/28/2018 Dates by First Scan: No previous this is first scan Dates by Current Scan for: (6 weeks/1 days) EDC: 07/04/2018 MATERNAL ANATOMY Uterus: 11.8 x 5.3 x 7.3 cm Right Ovary: 6.1 x 7.5 x 8.2 cm Left Ovary: 2.8 x 1.7 x 1.8 cm Post CDS / Adnexa: appears wnl Presence of free fluid: small amount Presence of corpus luteal cyst: no Presence of subchorionic bleed: no GESTATION / SURVEY CRL: 0.39 (6 weeks/1 days) MSD: 1.70 (6 weeks/0 days). Yolk Sac (normal less than 6mm): 3mm Heart Rate: 167 bpm Rhythm: Normal IUP: Viable IUP Beta HcG (if available): Not available at this time Viable IUP seen 6wks 2day HR 167 BPM TAMIE 07/04/2018. Right ovary is a mixed solid mass as seen in pre vious exams. This measures 6.2 x 5.7 x 7.1 cm. IMPRESSION: 1. Single live intrauterine with a sonographic age of 6 weeks and 2 days and heart rate of 167 bpm. Previously seen subchorionic hemorrhage is no longer visualized. 2. Continued demonstration of a hyperechoic right ovarian mass measuring over 7 cm. Further evaluatio n with pelvic MR is recommended as is could represent dermoid or ovarian neoplasm.
[2017-11-09 21:23] VITALS: BP 141/63; PULSE 78; RESP 16
== END 2017-11-09 21:23 | disposition home or self-care (01) ==
LOC: EC 15:56
DX: O20.0 Threatened abortion (principal); R19.7 Diarrhea, unspecified; R05 Cough; R11.10 Vomiting, unspecified; R53.1 Weakness; Z3A.01 Less than 8 weeks gestation of pregnancy; Z87.891 Personal history of nicotine dependence
CPT/HCPCS: 36415; 86900; 86901; 80053; 85025; 81003; 81025; 84702; 76801; 76817; 99284; 96374; 96375; 96361; J2405; J1885

== ENCOUNTER 2017-11-19 15:19 | Emergency (ER) | payer MEDICARE, OTHER ==
[2017-11-19 15:49] VITALS: RESP 18
--- NOTE | 2017-11-19 16:02 | ED ---
General Adult HPI - General Chief complaint: Urogenital Stated complaint: 8 Weeks [place]/Bleeding Time Seen by Provider: 11/19/17 15:52 Source: patient, RN notes reviewed Mode of arrival: ambulatory Limitations: no limitations - History of Present Illness Initial comments: Patient 37-year-old female who is approximately 8 weeks , who presents emergency room today with a chief complaint of some vaginal bleeding. She does admit that she woke up from a nap and noticed that she had some blood in her underwear. She states she is unsure she's soaping she just came here to the emergency room. She does not that she was seen here 10 days ago which showed ultrasound with single IUP 6 weeks 2 days. Patient denies any abdominal pain. Patient unsure of her G'S and P's. States she's only had live believes that this is her sixth or seventh . Patient denies any recent fever, chills, shortness of breath, chest pain, back pain, abdominal pain, nausea or vomiting, numbness or tingling, dysuria or hematuria, constipation or diarrhea, headaches or visual changes, or any other complaints. - Related Data Previous Rx's Medication Instructions Recorded Zts-Asiu-Wnlev Acid 1 cap PO DAILY #30 cap 11/09/17 [-U Capsule (formulary)] Allergies Allergy/AdvReac Type Severity Reaction Status Date / Time No Known Allergies Allergy Verified 11/19/17 16:22 Review of Systems ROS Statement: Those systems with pertinent positive or pertinent negative responses have been documented in the HPI. ROS Other: All systems not noted in ROS Statement are negative. Past Medical History Past Medical History: No Reported History History of Any Multi-Drug Resistant Organisms: None Reported Past Surgical History: No Surgical Hx Reported Past Anesthesia/Blood Transfusion Reactions: No Reported Reaction Past Psychological History: Anxiety, Depression Smoking Status: Former smoker Past Alcohol Use History: None Reported Past Drug Use History: None Reported - Past Family History Sister(s) Family Medical History: Hypertension Mother Family Medical History: Hypertension General Exam - General Exam Comments Initial Comments: General: The patient is awake and alert, in no distress, and does not appear acutely ill. Eye: Pupils are equal, round and reactive to light, extra-ocular movements are intact. No nystagmus. There is normal conjunctiva bilaterally. No signs of icterus. Ears, nose, mouth and throat: There are moist mucous membranes and no oral lesions. Neck: The neck is supple, there is no tenderness or JVD. Cardiovascular: There is a regular rate and rhythm. No murmur, rub or gallop is appreciated. Respiratory: Lungs are clear to auscultation, respirations are non-labored, breath sounds are equal. No wheezes, stridor, rales, or rhonchi. Gastrointestinal: Soft, non-distended, non-tender abdomen without masses or organomegaly noted. There is no rebound or guarding present. No CVA tenderness. Musculoskeletal: Normal ROM, no tenderness. Strength 5/5. Sensation intact. Pulses equal bilaterally 2+. Neurological: A&O x 3. CN II-XII intact, There are no obvious motor or sensory deficits. Coordination appears grossly intact. Speech is normal. Skin: Skin is warm and dry and no rashes or lesions are noted. Psychiatric: Cooperative, appropriate mood & affect, normal judgment. Limitations: no limitations Course Vital Signs 11/19/17 15:46 Temperature 97.3 F L Pulse Rate 90 Respiratory 18 Rate Blood Pressure 112/55 O2 Sat by Pulse 100 Oximetry Medical Decision Making - Medical Decision Making Patient reexamined at this time shows no signs of distress. She states she was able use the bathroom. The emergency room did not see any blood at this time. Patient states urinalysis shows 2 red cells. No sign of infection. Patient's abdomen is soft nontender. She did have and also on 11/09/2017 showing live IUP measuring 6 weeks 2 days. His discussed with attending physician Dr. Hi at this time. Vision doing well with no abdominal pain. Vitals are stable. Patient has had ultrasound in this showing some IUP. Patient's labs were reviewed from previous visit on 11/09/2017 showing Rh+. Patient will be discharged home advised follow through with the plan. Advised return if any symptoms increase or worsen. - Lab Data Lab Results 11/19/17 Range/Units 16:10 Urine Color Yellow Urine Appearance Cloudy H (Clear) Urine pH 6.0 (5.0-8.0) Ur Specific [place] 1.019 (1.001-1.035) Urine Protein Trace H (Negative) Urine Glucose (UA) Negative (Negative) Urine Ketones Negative (Negative) Urine Blood Large H (Negative) Urine Nitrite Negative (Negative) Urine Bilirubin Negative (Negative) Urine Urobilinogen 6.0 (<2.0) mg/dL Ur Leukocyte Esterase Negative (Negative) Urine RBC 2 (0-5) /hpf Urine WBC 2 (0-5) /hpf Ur Squamous Epith Cells 19 H (0-4) /hpf Urine Bacteria Rare H (None) /hpf Urine Mucus Occasional H (None) /hpf Disposition Clinical Impression: Threatened miscarriage Disposition: HOME SELF-CARE Condition: Stable Instructions: Threatened Miscarriage (ED) Additional Instructions: Please follow-up with your PATENT COUNSEL over the next 2 days. Please return here to the emergency room symptoms increase or worsen or for any other concerns. Referrals: Cristian Vines MD [Primary Care Provider] - 1-2 days Giancarlo Kelly DO [Doctor of Osteopathic Medicine] - 1-2 days Time of Disposition: 16:37
[2017-11-19 16:27] LABS: Appearance,Urine Cloudy (Clear); Bacteria,Urine Rare /hpf; Bilirubin,Urine Negative (Negative); Blood,Urine Large (Negative); Color,Urine Yellow; Glucose,Urine (UA) Negative (Negative); Ketones,Urine Negative (Negative); Leukocyte Esterase,Urine Negative (Negative); Mucus,Urine Occasional /hpf; Nitrite,Urine Negative (Negative); Protein,Urine Trace (Negative); RBC,Urine 2 /hpf (0-5); Specific Gravity,Urine 1.019 (1.001-1.035); Squamous Epithelial Cell,Urine 19 /hpf (0-4); WBC,Urine 2 /hpf (0-5)
[2017-11-19 16:44] VITALS: BP 140/64; PULSE 82; TEMP 97.5
== END 2017-11-19 16:50 | disposition home or self-care (01) ==
LOC: EC 15:19
DX: O20.0 Threatened abortion (principal); Z87.891 Personal history of nicotine dependence; Z3A.01 Less than 8 weeks gestation of pregnancy
CPT/HCPCS: 81001; 87086; 99284